=== PATIENT | female | born 1930 ===

== ENCOUNTER 2017-05-23 10:42 | Emergency (ER) | payer SELFPAY ==
[2017-05-23 10:58] VITALS: O2SAT 100
[2017-05-23] MEDS ORDERED: Sodium Chloride 0.9% 500 ML IV ONE ×2 (11:53→12:08)
--- NOTE | 2017-05-23 11:57 | C.PDOC ---
History Of Present Illness 86 year old male who presents to the ER with a complaint of cough, cold, congestion, and abdominal pain for the past 5 days. Denies fever or chills. Time Seen by Provider: 05/23/17 11:45 Chief Complaint (Nursing): Cough, Cold, Congestion History Per: Patient History/Exam Limitations: language barrier Onset/Duration Of Symptoms: Days (5) Current Symptoms Are (Timing): Still Present Location Of Pain/Discomfort: Diffuse Radiation Of Pain To:: None Quality Of Discomfort: Unable To Describe Associated Symptoms: Other (Cough, congestion, cold) Exacerbating Factors: None Alleviating Factors: None Recent travel outside of the [place]: No Abnormal Vaginal Bleeding: No Past Medical History Reviewed: Historical Data, Nursing Documentation, Vital Signs Vital Signs: Last Vital Signs Temp 98.7 F 05/23/17 10:56 Pulse 63 05/23/17 10:56 Resp 18 05/23/17 10:56 BP 167/61 H 05/23/17 10:56 Pulse Ox 100 05/23/17 14:03 - Medical History PMH: No Chronic Diseases Surgical History: No Surg Hx Family History: States: Unknown Family Hx - Social History Hx Alcohol Use: No Hx Substance Use: No - Immunization History Hx Tetanus Toxoid Vaccination: No Hx Influenza Vaccination: No Hx Pneumococcal Vaccination: No Review Of Systems Constitutional: Negative for: Fever, Chills Respiratory: Positive for: Cough, Other (Congestion) Physical Exam - Physical Exam Appears: Non-toxic Skin: Normal Color, Warm, Dry Head: Atraumatic, Normacephalic Oral Mucosa: Moist Chest: Symmetrical, No Tenderness Cardiovascular: Rhythm Regular, No Murmur Respiratory: Normal Breath Sounds, No Rales, No Rhonchi, No Wheezing Gastrointestinal/Abdominal: Soft, Tenderness (Diffuse) Neurological/Psych: Oriented x3, Normal Speech, Normal Cognition ED Course And Treatment - Laboratory Results Result Diagrams: 05/23/17 12:28 05/23/17 12:28 Lab Interpretation: Normal ECG: Interpreted By Me ECG Rhythm: Sinus Rhythm, R BBB ECG Interpretation: No Acute Changes Rate From EC O2 Sat by Pulse Oximetry: 100 (Room air) Pulse Ox Interpretation: Normal - Radiology CXR: Interpreted by Me CXR Interpretation: Yes: No Acute Disease - CT Scan/US No standard instances Other Rad Studies (CT/US): Read By Radiologist, Radiology Report Reviewed CT/US Interpretation: FINDINGS: LOWER THORAX: The lung bases are clear. There is linear atelectasis/scarring in the lingula. LIVER: The liver is normal in size. No gross lesion or ductal dilatation. GALLBLADDER AND BILE DUCTS: The gallbladder is contracted. PANCREAS: Normal in size. No gross lesion or ductal dilatation. SPLEEN: Normal in size. ADRENALS: No discrete nodule. KIDNEYS AND URETERS: Both kidneys are normal in size without hydronephrosis or left nephrolithiasis. There is a punctate nonobstructing stone in the lower pole of the right kidney. There are few simple cysts in the kidneys, the largest in the left lower pole measures 2.9 cm. VASCULATURE: No aortic aneurysm. BOWEL: There is mild segmental dilatation of a proximal jejunal loop with fecalization of contents bone the mid and distal small bowel loops are normal in caliber. There is colonic diverticulosis, extensive in the left hemicolon. No definite is CT evidence for acute diverticulitis. There is no bowel obstruction. APPENDIX: Not distinctly identified however no inflammatory changes in the right lower quadrant. PERITONEUM: No free fluid. No free air. LYMPH NODES: No enlarged lymph nodes. BLADDER: Normal in appearance. REPRODUCTIVE: Unremarkable. BONES: No acute fracture. Mild diffuse bone demineralization and multilevel degenerative disc disease. OTHER FINDINGS: There is a small sliding hiatal hernia. IMPRESSION: 1. Mild segmental dilatation of the proximal jejunal loop without evidence of obstruction could be related to nonspecific enteritis or ileus, fecalization of small bowel contents compatible with chronic stasis. No evidence of bowel obstruction. 2. Colonic diverticulosis, extensive in the left hemicolon. No definite CT evidence for acute diverticulitis. Progress Note: Blood work, urinalysis, EKG, and CXR ordered. Zofran and IV fluids administered. Treated with macrobid 100 mg PO. On re-evaluation abdomen soft minimal tenderness. discharged in stable condition Reassessment Condition: Improved Disposition Counseled Patient/Family Regarding: Studies Performed, Diagnosis, Need For Followup, Rx Given - Disposition Referrals: [facility] [Outside] [facility] [Outside] Disposition: HOME/ ROUTINE Disposition Time: 14:00 Condition: STABLE Additional Instructions: Return to ED if any increase symptoms Prescriptions: Albuterol HFA [Ventolin HFA 90 mcg/actuation (8 g)] 2 puff IH [id number] #1 puff Nitrofurantoin Macrocrystals [Macrobid] 1 cap PO BID #14 cap Forms: [facility] ([employer]) Print Language: KOREAN - POA Present On Arrival: None - Clinical Impression Clinical Impression: Abdominal pain, Cough, UTI (urinary tract infection) - Scribe Statement The provider has reviewed the documentation as recorded by the Scribe Per Min All medical record entries made by the Scribe were at my direction and personally dictated by me. I have reviewed the chart and agree that the record accurately reflects my personal performance of the history, physical exam, medical decision making, and the department course for this patient. I have also personally directed, reviewed, and agree with the discharge instructions and disposition.
[2017-05-23 12:33] LABS: BASO % 0.4 % (0.0-2.0); EOS # 0.3 K/uL (0.0-0.7); EOS % 4.9 % (0.0-4.0); HEMATOCRIT 35.6 % (34.0-47.0); LYMPH # 1.2 K/uL (1.0-4.3); LYMPH % 20.7 % (20.0-40.0); MEAN CELL VOLUME 89.7 fL (81.0-99.0); MEAN CORPUSCULAR HGB CONC 33.5 g/dL (33.0-37.0); MEAN PLATELET VOLUME 6.7 fL (7.2-11.7); MONO # 0.4 K/uL (0.0-0.8); MONO % 6.6 % (0.0-10.0); RED CELL DISTRIBUTION WIDTH 14.4 % (11.5-14.5)
[2017-05-23 12:43] LABS: CHLORIDE 100 mmol/L (98-107)
[2017-05-23 12:44] LABS: POTASSIUM 4.4 mmol/L (3.6-5.2); SODIUM 137 mmol/L (132-148)
[2017-05-23 12:46] LABS: ALB/GLOB RATIO 1.3 (1.0-2.1); AST/SGOT 28 U/L (14-36); BILIRUBIN,TOTAL 0.6 mg/dL (0.2-1.3); CARBON DIOXIDE 25 mmol/L (22-30); GFR AFRICAN-AMERICAN > 60; TOTAL PROTEIN 6.9 g/dL (6.3-8.3)
[2017-05-23 12:47] LABS: ALKALINE PHOSPHATASE 66 U/L (38-126); ALT/SGPT 25 U/L (9-52); BLOOD UREA NITROGEN 19 mg/dL (7-17); CALCIUM 8.9 mg/dl (8.6-10.4); GLUCOSE,RANDOM 91 mg/dL (65-105)
[2017-05-23 12:55] LABS: RBC URINE < 1 /hpf (0-3); URINE BILIRUBIN NEGATIVE (NEGATIVE); URINE BLOOD NEGATIVE (NEGATIVE); URINE COLOR Yellow (YELLOW); URINE GLUCOSE (UA) NORMAL (Normal); URINE KETONE NEGATIVE (NEGATIVE); URINE LEUKOCYTE ESTERASE 1+ Leu/uL (Negative); URINE PROTEIN NEGATIVE (NEGATIVE); URINE UROBILINOGEN NORMAL mg/dL (0.2-1.0); WBC URINE 4 /hpf (0-5)
--- NOTE | 2017-05-23 12:58 | CT ---
PROCEDURE: CT Abdomen and Pelvis without intravenous contrast HISTORY: Pain COMPARISON: None. TECHNIQUE: CT scan of the abdomen and pelvis was performed without administration of intravenous contrast. Oral contrast was not administered. Coronal and sagittal reformatted images were obtained. Radiation dose: Total exam DLP = 422.12 mGy-cm. This CT exam was performed using one or more of the following dose reduction techniques: Automated exposure control, adjustment of the mA and/or kV according to patient size, and/or use of iterative reconstruction technique. FINDINGS: LOWER THORAX: The lung bases are clear. There is linear atelectasis/scarring in the lingula. LIVER: The liver is normal in size. No gross lesion or ductal dilatation. GALLBLADDER AND BILE DUCTS: The gallbladder is contracted. PANCREAS: Normal in size. No gross lesion or ductal dilatation. SPLEEN: Normal in size. ADRENALS: No discrete nodule. KIDNEYS AND URETERS: Both kidneys are normal in size without hydronephrosis or left nephrolithiasis. There is a punctate nonobstructing stone in the lower pole of the right kidney. There are few simple cysts in the kidneys, the largest in the left lower pole measures 2.9 cm. VASCULATURE: No aortic aneurysm. BOWEL: There is mild segmental dilatation of a proximal jejunal loop with fecalization of contents bone the mid and distal small bowel loops are normal in caliber. There is colonic diverticulosis, extensive in the left hemicolon. No definite is CT evidence for acute diverticulitis. There is no bowel obstruction. APPENDIX: Not distinctly identified however no inflammatory changes in the right lower quadrant. PERITONEUM: No free fluid. No free air. LYMPH NODES: No enlarged lymph nodes. BLADDER: Normal in appearance. REPRODUCTIVE: Unremarkable. BONES: No acute fracture. Mild diffuse bone demineralization and multilevel degenerative disc disease. OTHER FINDINGS: There is a small sliding hiatal hernia. IMPRESSION: 1. Mild segmental dilatation of the proximal jejunal loop without evidence of obstruction could be related to nonspecific enteritis or ileus, fecalization of small bowel contents compatible with chronic stasis. No evidence of bowel obstruction. 2. Colonic diverticulosis, extensive in the left hemicolon. No definite CT evidence for acute diverticulitis.
[2017-05-23] MEDS ORDERED: Sodium Chloride 0.9% 1,000 ML IV ONE (13:02)
--- NOTE | 2017-05-23 14:26 | RAD ---
HISTORY: SOB COMPARISON: No prior. TECHNIQUE: Chest PA and lateral FINDINGS: LUNGS: There is linear atelectasis/ scarring in the left lower lobe. The right lung is clear. There is pulmonary hyperinflation and peribronchial thickening. PLEURA: No significant pleural effusion identified. No pneumothorax apparent. CARDIOVASCULAR: Normal. OSSEOUS STRUCTURES: Within normal limits for the patient's age. VISUALIZED UPPER ABDOMEN: Normal. OTHER FINDINGS: None. IMPRESSION: No active pulmonary disease. COPD.
[2017-05-23 14:58] VITALS: BP 160/65; PULSE 58; RESP 16; TEMP 98
--- NOTE | 2017-05-26 07:12 | CARD ---
APPROVED REPORT EKG Measurement Heart [id number] <Conclusion> Sinus bradycardia with sinus arrhythmia Right bundle branch block Possible Inferior infarct, age undetermined Abnormal ECG
== END 2017-05-23 14:20 | disposition home or self-care (01) ==
LOC: C.ER 10:42
DX: N39.0 Urinary tract infection, site not specified (principal); R05 Cough
CPT/HCPCS: 71020; 74176; 80053; 81001; 83690; 85025; 87086; 96361; 96374; 99284; J2405; J7040